=== PATIENT | female | born 1940 | race Caucasian/White ===

== ENCOUNTER 2019-12-09 15:50 | Observation (INO) ==
[2019-12-09 16:24] LABS: Basophils % 0.7 %; Eosinophils # 0.4 K/mcL (0.0-0.6); Eosinophils % 7.1 %; Hematocrit 43.3 % (35.3-44.9); Hemoglobin 14.3 g/dL (11.5-15.4); Immature Granulocytes % 0.2 % (0-4); Lymphocytes # 1.5 K/mcL (0.6-4.6); Lymphocytes % 28.7 %; Mean Corpuscular Hemoglobin 32.4 pg (28.0-33.3); Mean Corpuscular Volume 98.2 fL (83.0-100.0); Monocytes # 0.5 K/mcL (0.0-1.3); Monocytes % 10.1 %; Neutrophils # 2.8 K/mcL (1.6-8.9); Platelet Count 187 K/mcL (140-400); Red Blood Count 4.41 M/mcL (3.82-4.97); Red Cell Distribution Width 12.4 % (11.5-14.5); Segmented Neutrophils % 53.2 %; White Blood Count 5.3 K/mcL (4.3-11.1)
[2019-12-09] MEDS ORDERED: Ondansetron ODT 4 MG TAB.RAPDIS SL ONE (16:36)
[2019-12-09 16:40] LABS: BUN/Creatinine Ratio 22 (6-26); Blood Urea Nitrogen 22 mg/dL (8-23); Calcium 9.1 mg/dL (8.6-10.3); Carbon Dioxide 22 mEq/L (23-29); Chloride 106 mEq/L (98-107); Glucose 104 mg/dL (70-105); Osmolality,Calculated 288 (280-300); Potassium 3.7 mEq/L (3.5-5.1); Sodium 137 mEq/L (136-145); eGFR For African Americans > 60 (> 60); eGFR For Non-African Americans 54 (> 60)
[2019-12-09 16:41] LABS: Troponin I < 0.03 ng/mL (< 0.04)
[2019-12-09] MEDS ORDERED: Mag Hydrox/Al Hydrox/Simeth 30 ML UDC PO PRN (18:22)
[2019-12-09] MEDS ORDERED: Naloxone 0.4 MG/ML INJ IVP PRN (18:22)
[2019-12-09] MEDS ORDERED: Ondansetron 4 MG/2 ML VIAL IVP PRN (18:22)
[2019-12-09] MEDS ORDERED: cloNIDine HCl 0.1 MG TABLET PO PRN (19:11)
[2019-12-09] MEDS: Metoprolol XL (24 HR) Succ 25 MG TAB.ER.24H PO SCH (20:06)
[2019-12-09] MEDS: Aspirin Enteric Coated 325 MG Tablet PO SCH (20:06)
[2019-12-10 07:47] LABS: Basophils % 0.4 %; Eosinophils # 0.1 K/mcL (0.0-0.6); Hematocrit 40.7 % (35.3-44.9); Hemoglobin 13.8 g/dL (11.5-15.4); Immature Granulocytes % 0.3 % (0-4); Lymphocytes % 13.8 %; Mean Corpuscular HGB Conc 33.9 g/dL (31.6-35.5); Mean Corpuscular Hemoglobin 32.9 pg (28.0-33.3); Mean Corpuscular Volume 96.9 fL (83.0-100.0); Mean Platelet Volume 9.9 fL (9.4-12.4); Monocytes # 0.7 K/mcL (0.0-1.3); Monocytes % 9.6 %; Neutrophils # 5.3 K/mcL (1.6-8.9); Platelet Count 183 K/mcL (140-400); Red Cell Distribution Width 12.3 % (11.5-14.5); Segmented Neutrophils % 74.9 %; White Blood Count 7.1 K/mcL (4.3-11.1)
[2019-12-10 08:02] LABS: BUN/Creatinine Ratio 18 (6-26); Blood Urea Nitrogen 18 mg/dL (8-23); Carbon Dioxide 25 mEq/L (23-29); Chloride 106 mEq/L (98-107); Glucose 96 mg/dL (70-105); Osmolality,Calculated 286 (280-300); Sodium 137 mEq/L (136-145); eGFR For African Americans > 60 (> 60); eGFR For Non-African Americans 52 (> 60)
[2019-12-10] MEDS: Aspirin Enteric Coated 325 MG Tablet PO SCH (08:36)
[2019-12-10] MEDS: Metoprolol XL (24 HR) Succ 25 MG TAB.ER.24H PO SCH (08:36)
[2019-12-10 16:40] LABS: Bilirubin,Urine Negative (Negative); Blood,Urine Trace-lysed (Negative); Clarity,Urine Slightly Cloudy (Clear); Glucose,Urine (UA) Normal (Normal); Ketones,Urine Negative (Negative); Leukocyte Esterase,Urine Small (Negative); Nitrite,Urine Negative (Negative); Protein,Urine Negative (Neg-Trace); Urobilinogen,Urine Normal (Normal)
[2019-12-10 16:46] LABS: Color,Urine Light Yellow (Yellow)
[2019-12-10 16:48] LABS: Bacteria,Urine Many per hpf (None-Few); RBC,Urine 0-3 per hpf (0-3); Squamous Epithelial Cell,Urine Few per lpf (None-Few)
[2019-12-11] MEDS: Aspirin Enteric Coated 325 MG Tablet PO SCH (08:04)
[2019-12-11] MEDS: Metoprolol XL (24 HR) Succ 25 MG TAB.ER.24H PO SCH (08:04)
[2019-12-11 10:21] VITALS: BP 122/61
== END 2019-12-11 16:00 | disposition home or self-care (01) ==
LOC: INPPIK 15:50 → EMEROOPIK 15:50 → SUATTDRO 17:29 → INPPIK 17:48
PROVIDERS: ADMIT Emergency Medicine; ATTEND Family Medicine